=== PATIENT | male | born 1985 | race Caucasian/White ===

== ENCOUNTER 2017-08-26 18:46 | Emergency (ER) | payer SELFPAY ==
[~2017-08-26] VITALS: Ht 193 cm; Wt 136.1 kg
[2017-08-26] MEDS ORDERED: IV NORMAL SALINE 1000ML BAG 1,000 ML IV ONE (19:15)
[2017-08-26] MEDS ORDERED: IPRATRPIUM/ALBUTEROL 0.5/2.5MG 3 ML NEBU. NEB ONE (19:15)
[2017-08-26 19:31] LABS: BILIRUBIN,URINE NEGATIVE (NEG); GLUCOSE,URINE NEGATIVE (NEG); NITRITE,URINE NEGATIVE (NEG); PROTEIN,URINE NEGATIVE (NEG-TRACE); UROBILINOGEN,URINE 0.2 mg/dL (0.2 mg/dL)
[2017-08-26 19:34] LABS: BARBITURATES NEG (NEG); BENZODIAZEPINES NEG (NEG); CANNABINOIDS NEG (NEG); COCAINE NEG (NEG); METHADONE NEG (NEG); OPIATES NEG (NEG); PHENCYCLIDINE NEG (NEG)
[2017-08-26 19:35] LABS: BASO % 1 % (0-3); EOS % 3 % (0-3); HEMATOCRIT 46.2 % (39.0-53.0); HEMOGLOBIN 16.4 g/dL (13.0-17.5); LYMPH # 2.5 x10^3/uL (1.0-4.8); LYMPH % 26 % (24-48); MEAN CORPUSCULAR HEMOGLOBIN 35 pg (25-35); MEAN CORPUSCULAR HGB CONC 35 g/dL (31-37); MEAN CORPUSCULAR VOLUME 98 fL (79-100); MONO % 6 % (0-9); NEUT % 64 % (31-73); PLATELET COUNT 268 x10^3/uL (140-400); RED BLOOD COUNT 4.73 x10^6/uL (4.30-5.70); RED CELL DISTRIBUTION WIDTH 12.7 % (11.5-14.5); WHITE BLOOD COUNT 9.8 x10^3/uL (4.0-11.0)
[2017-08-26 19:44] LABS: INR 1.1 (0.8-1.1); PROTHROMBIN TIME PATIENT 13.3 SEC (11.7-14.0)
[2017-08-26 19:45] LABS: BACTERIA,URINE 0 /HPF (0-FEW); RBC,URINE 0 /HPF (0-2); WBC,URINE 0 /HPF (0-4)
[2017-08-26 19:53] LABS: ETHANOL 195 mg/dL (0-10)
[2017-08-26 19:56] LABS: CALCIUM 9.4 mg/dL (8.5-10.1); CREATININE 1.1 mg/dL (0.7-1.3); GFR 76.6; POTASSIUM 3.9 mmol/L (3.5-5.1)
[2017-08-26 20:03] LABS: ALBUMIN 4.3 g/dL (3.4-5.0); ALBUMIN/GLOBULIN RATIO 1.1 (1.0-1.7); MAGNESIUM 2.3 mg/dL (1.8-2.4); TOTAL BILIRUBIN 0.3 mg/dL (0.2-1.0); TOTAL PROTEIN 8.2 g/dL (6.4-8.2)
[2017-08-26] MEDS ORDERED: KETOROLAC 30 MG/ML INJ. IV ONE (20:15)
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
[2017-08-26] MEDS ORDERED: ZIPRASIDONE 20 MG CAPSULE PO ONE (21:45)
[2017-08-26 22:05] VITALS: BP 138/78
--- NOTE | 2017-08-27 07:24 | EKG ---
[facility] [address] [place] [address] Test Date: 2017-08-26 Test Time: 18:51:45 Pat Name: JERRY SAUCEDO Department: Room: Gender: M [employer]: : [id number] Requested By: EKATERINA HEARN Order Number: [id number] Reading MD: Measurements Intervals [place] Rate: 63 P: 0 TX: 172 QRS: 83 QRSD: 102 T: 21 QT: 402 QTc: 414 Interpretive Statements SINUS RHYTHM NORMAL ECG RI6.01 Unconfirmed report No previous ECG available for comparison
--- NOTE | 2017-08-27 07:33 | RAD ---
Chest x-ray Indication: Shortness of breath and chest pain Technique: Portable AP upright chest x-ray Comparison: 08/22/2013 Findings: Heart is normal in size. Lungs are clear. No pneumothorax or pleural effusion. Visualized bony thorax within normal limits. Impression: No acute cardiopulmonary process.
== END 2017-08-26 23:43 | disposition short-term general hospital (02) ==
LOC: ER 18:46
DX: M94.0 Chondrocostal junction syndrome [Tietze] (principal); F41.9 Anxiety disorder, unspecified; F10.10 Alcohol abuse, uncomplicated; R45.851 Suicidal ideations; F43.10 Post-traumatic stress disorder, unspecified; Y90.6 Blood alcohol level of 120-199 mg/100 ml; Z91.013 Allergy to seafood
CPT/HCPCS: 36415; 71010; 80053; 80307; 81001; 82550; 83690; 83735; 83880; 84484; 85025; 85610; 85730; 93005; 94250; 94640; 96361; 96374; 96376; 99285; G0480; J2060; J7030; J7620; G0479